=== PATIENT | male | born 1990 | race Hispanic/Latino ===

== ENCOUNTER 2017-12-08 20:48 | Emergency (ER) | payer OTHER ==
--- NOTE | 2017-12-08 21:27 | EDPHYS ---
Physician Documentation [facility] Name: Rickey Ingram Age: 26 yrs Sex: Male : 1990 Arrival Date: 12/08/2017 Time: 20:52 Bed 12 Private MD: Rajesh Lee HPI: 12/08 21:37 This 26 yrs old Male presents to ER via Ambulatory with complaints of Rash. kb 21:37 The patient's rash thought to be caused by an unknown cause. The rash is located on the kb body diffusely. The rash can be described as erythematous. Onset: The symptoms/episode began/occurred 2 week(s) ago. Associated signs and symptoms: Pertinent positives: itching, Pertinent negatives: burning sensation, difficulty breathing, fever, nausea, Pain swelling of lips, swelling of throat, swelling of tongue, vomiting, wheezing. Severity of symptoms: At their worst the symptoms were moderate in the emergency department the symptoms are unchanged. Treatment given at home: Benadryl. The patient has not experienced similar symptoms in the past. The patient has not recently seen a physician. Pt states he has had a rash that started on feet and hands, then spread to entire body. C/o intense itching. No one else has symptoms at home.. Historical: - Allergies: 21:05 No Known Allergies; aj - Home Meds: 21:05 None [Active]; aj - PMHx: 21:05 CVA; aj - PSHx: 21:05 Testicular Torsion; Knee surgery; aj - Immunization history:: Adult Immunizations up to date. - Social history:: Smoking status: Patient uses tobacco products, smokes one-half pack cigarettes per day. - Ebola Screening: : Patient negative for fever greater than or equal to 101.5 degrees Fahrenheit, and additional compatible Ebola Virus Disease symptoms Patient denies exposure to infectious person Patient denies travel to an Ebola-affected area in the 21 days before illness onset No symptoms or risks identified at this time. ROS: 21:37 Constitutional: Negative for fever, chills, and weight loss, ENT: Negative for injury, kb pain, and discharge, Neck: Negative for injury, pain, and swelling, Cardiovascular: Negative for chest pain, palpitations, and edema, Respiratory: Negative for shortness of breath, cough, wheezing, and pleuritic chest pain, Abdomen/GI: Negative for abdominal pain, nausea, vomiting, diarrhea, and constipation, Back: Negative for injury and pain, MS/Extremity: Negative for injury and deformity, Neuro: Negative for headache, weakness, numbness, tingling, and seizure. 21:37 Skin: Positive for rash, diffusely. Exam: 21:37 Constitutional: This is a well developed, well nourished patient who is awake, alert, kb and in no acute distress. Head/Face: Normocephalic, atraumatic. ENT: Nares patent. No nasal discharge, no septal abnormalities noted. Tympanic membranes are normal and external auditory canals are clear. Oropharynx with no redness, swelling, or masses, exudates, or evidence of obstruction, uvula midline. Mucous membranes moist. Neck: Trachea midline, no thyromegaly or masses palpated, and no cervical lymphadenopathy. Supple, full range of motion without nuchal rigidity, or vertebral point tenderness. No Meningismus. Chest/axilla: Normal chest wall appearance and motion. Nontender with no deformity. No lesions are appreciated. Cardiovascular: Regular rate and rhythm with a normal S1 and S2. No gallops, murmurs, or rubs. Normal PMI, no JVD. No pulse deficits. Respiratory: Lungs have equal breath sounds bilaterally, clear to auscultation and percussion. No rales, rhonchi or wheezes noted. No increased work of breathing, no retractions or nasal flaring. Abdomen/GI: Soft, non-tender, with normal bowel sounds. No distension or tympany. No guarding or rebound. No evidence of tenderness throughout. MS/ Extremity: Pulses equal, no cyanosis. Neurovascular intact. Full, normal range of motion. Neuro: Awake and alert, GCS 15, oriented to person, place, time, and situation. Cranial nerves II-XII grossly intact. Motor strength 5/5 in all extremities. Sensory grossly intact. Cerebellar exam normal. Normal gait. 21:40 Skin: redness noted between fingers, pt scratching all over . kb Vital Signs: 21:05 BP 134 / 88; Pulse 67; Resp 19; Temp 98.1; Pulse Ox 96% on R/A; Weight 117.03 kg; aj Height 5 ft. 7 in. (170.18 cm); 21:05 Body Mass Index 40.41 (117.03 kg, 170.18 cm) heather MDM: 21:16 Patient medically screened. kb 21:37 Data reviewed: vital signs, nurses notes. Data interpreted: Pulse oximetry: on room air kb is 96 %. Interpretation: normal. Counseling: I had a detailed discussion with the patient and/or guardian regarding: the historical points, exam findings, and any diagnostic results supporting the discharge/admit diagnosis, the need for outpatient follow up, a family practitioner, to return to the emergency department if symptoms worsen or persist or if there are any questions or concerns that arise at home. Administered Medications: No medications were administered Disposition: 12/09 06:52 Co-signature as Attending Physician, Rajesh Perry MD I agree with the assessment and [facility] plan of care. Disposition: 12/08/17 21:26 Discharged to Home. Impression: Scabies. - Condition is Stable. - Discharge Instructions: Scabies, Adult. - Prescriptions for Elimite 5 % Topical Cream - apply 1 application by TOPICAL route one time Wash after 12 hours.; 60 gram. - Medication Reconciliation Form, Thank You Letter, Antibiotic Education, Prescription Opioid Use form. - Follow up: Emergency Department; When: As needed; Reason: Worsening of condition. Follow up: Private Physician; When: 2 - 3 days; Reason: Recheck today's complaints, Continuance of care, Re-evaluation by your physician. Signatures: Nayeli López, CAREY-James PATINO-Danielle Telles RN RN aj Anderson, Corey, MD MD [facility] Corrections: (The following items were deleted from the chart) 12/08 21:32 21:26 12/08/2017 21:26 Discharged to Home. Impression: Scabies. Condition is Stable. aj Forms are Medication Reconciliation Form, Thank You Letter, Antibiotic Education, Prescription Opioid Use. Follow up: Emergency Department; When: As needed; Reason: Worsening of condition. Follow up: Private Physician; When: 2 - 3 days; Reason: Recheck today's complaints, Continuance of care, Re-evaluation by your physician. kb 21:41 21:37 Constitutional: This is a well developed, well nourished patient who is awake, kb alert, and in no acute distress. Head/Face: Normocephalic, atraumatic. ENT: Nares patent. No nasal discharge, no septal abnormalities noted. Tympanic membranes are normal and external auditory canals are clear. Oropharynx with no redness, swelling, or masses, exudates, or evidence of obstruction, uvula midline. Mucous membranes moist. Neck: Trachea midline, no thyromegaly or masses palpated, and no cervical lymphadenopathy. Supple, full range of motion without nuchal rigidity, or vertebral point tenderness. No Meningismus. Chest/axilla: Normal chest wall appearance and motion. Nontender with no deformity. No lesions are appreciated. Cardiovascular: Regular rate and rhythm with a normal S1 and S2. No gallops, murmurs, or rubs. Normal PMI, no JVD. No pulse deficits. Respiratory: Lungs have equal breath sounds bilaterally, clear to auscultation and percussion. No rales, rhonchi or wheezes noted. No increased work of breathing, no retractions or nasal flaring. Abdomen/GI: Soft, non-tender, with normal bowel sounds. No distension or tympany. No guarding or rebound. No evidence of tenderness throughout. Skin: Warm, dry with normal turgor. Normal color with no rashes, no lesions, and no evidence of cellulitis. MS/ Extremity: Pulses equal, no cyanosis. Neurovascular intact. Full, normal range of motion. Neuro: Awake and alert, GCS 15, oriented to person, place, time, and situation. Cranial nerves II-XII grossly intact. Motor strength 5/5 in all extremities. Sensory grossly intact. Cerebellar exam normal. Normal gait. kb
--- NOTE | 2017-12-08 21:27 | ER ---
Nurse's Notes [facility] Name: Rickey Ingram Age: 26 yrs Sex: Male : 1990 Arrival Date: 12/08/2017 Time: 20:52 Bed 12 Private MD: Diagnosis: Scabies Presentation: 12/08 21:03 Presenting complaint: Patient states: Reports itchy rash to bilateral hands that is aj worse at night for 2 weeks. Rash has spread to groin and feet. Transition of care: patient was not received from another setting of care. Onset of symptoms was November 25, 2017. Risk Assessment: Do you want to hurt yourself or someone else? Patient reports no desire to harm self or others. Initial Sepsis Screen: Does the patient meet any 2 criteria? No. Patient's initial sepsis screen is negative. Does the patient have a suspected source of infection? No. Patient's initial sepsis screen is negative. Care prior to arrival: None. 21:03 Method Of Arrival: Ambulatory aj 21:03 Acuity: MARY 5 aj Triage Assessment: 21:05 General: Appears in no apparent distress. comfortable, Behavior is calm, cooperative, aj appropriate for age. Pain: Denies pain. Neuro: Level of Consciousness is awake, alert, obeys commands, Oriented to person, place, time, situation, Appropriate for age. Respiratory: Airway is patent Respiratory effort is even, unlabored, Respiratory pattern is regular, symmetrical. Derm: Skin is intact, is healthy with good turgor, Skin is pink, warm \T\ dry. normal, Rash noted that is itchy, on pelvis, right hand, left hand, right foot and left foot. Historical: - Allergies: 21:05 No Known Allergies; aj - Home Meds: 21:05 None [Active]; aj - PMHx: 21:05 CVA; aj - PSHx: 21:05 Testicular Torsion; Knee surgery; aj - Immunization history:: Adult Immunizations up to date. - Social history:: Smoking status: Patient uses tobacco products, smokes one-half pack cigarettes per day. - Ebola Screening: : Patient negative for fever greater than or equal to 101.5 degrees Fahrenheit, and additional compatible Ebola Virus Disease symptoms Patient denies exposure to infectious person Patient denies travel to an Ebola-affected area in the 21 days before illness onset No symptoms or risks identified at this time. Screenin:17 Abuse screen: Denies threats or abuse. Nutritional screening: No deficits noted. bb Tuberculosis screening: No symptoms or risk factors identified. Fall Risk None identified. Assessment: :17 Reassessment: No changes from previously documented assessment. see triage assessment. bb Vital Signs: 21:05 BP 134 / 88; Pulse 67; Resp 19; Temp 98.1; Pulse Ox 96% on R/A; Weight 117.03 kg; aj Height 5 ft. 7 in. (170.18 cm); 21:05 Body Mass Index 40.41 (117.03 kg, 170.18 cm) aj ED Course: 20:52 Patient arrived in ED. al2 21: Triage completed. aj 21:05 Arm band placed on left wrist. Patient placed in an exam room. aj 21:16 Nayeli López FNP-C is [facility]. kb 21:16 Rajesh Perry MD is Attending Physician. kb 21:17 Patient has correct armband on for positive identification. Call light in reach. bb 21:32 Danielle Bautista, RN is Primary Nurse. aj 21:32 No provider procedures requiring assistance completed. Patient did not have IV access aj during this emergency room visit. Administered Medications: No medications were administered Outcome: :26 Discharge ordered by MD. kb 21:32 Discharged to home ambulatory. aj 21:32 Condition: good 21:32 Discharge instructions given to patient, Instructed on discharge instructions, follow up and referral plans. medication usage, Demonstrated understanding of instructions, follow-up care, medications, Prescriptions given X 1. 21:32 Patient left the ED. aj Signatures: Nayeli López FNP-C FNP-Danielle Telles, RN RN Kayleen Lagos RN RN Nneka Berg al2
== END 2017-12-08 21:32 | disposition home or self-care (01) ==
LOC: ER 20:48
DX: B86 Scabies (principal); F17.210 Nicotine dependence, cigarettes, uncomplicated; Z86.73 Personal history of transient ischemic attack (TIA), and cerebral infarction without residual deficits
CPT/HCPCS: 99282

== ENCOUNTER 2018-08-17 19:07 | Emergency (ER) | payer OTHER ==
--- NOTE | 2018-08-17 20:26 | RAD REPORT ---
EXAM DESCRIPTION: RAD - C Spine Ap/Lat - 08/17/2018 8:16 pm CLINICAL HISTORY: Neck pain FINDINGS: The alignment of the cervical spine is satisfactory. No fracture or dislocation is seen. Mild spondylosis involves mid and distal cervical spine
--- NOTE | 2018-08-17 20:28 | RAD REPORT ---
EXAM DESCRIPTION: RAD - Lumbar Spine 3 Views - 08/17/2018 8:14 pm CLINICAL HISTORY: Back pain FINDINGS: Six lumbar vertebra The alignment of the lumbar spine is satisfactory. No fracture or dislocation is seen. No significant bone or joint abnormality seen involving the lumbar spine. Mild spondylosis involving the lower thoracic spine
--- NOTE | 2018-08-17 20:34 | ER ---
Nurse's Notes [facility] Name: Rickey Ingram Age: 27 yrs Sex: Male : 1990 Arrival Date: 08/17/2018 Time: 19:09 Bed 10 Private MD: Diagnosis: Low back pain Presentation: 08/17 19:18 Presenting complaint: Left sided low back pain x 3 months. Transition of care: patient hb was not received from another setting of care. Onset of symptoms is unknown. Risk Assessment: Do you want to hurt yourself or someone else? Patient reports no desire to harm self or others. Care prior to arrival: None. 19:18 Method Of Arrival: Ambulatory hb 19:18 Acuity: MARY 4 hb Historical: - Allergies: 19:19 No Known Allergies; hb - PMHx: 19:19 CVA; hb - PSHx: 19:19 Testicular Torsion; Knee surgery; hb - Immunization history:: Adult Immunizations up to date. - Social history:: Smoking status: Patient/guardian denies using tobacco. - Ebola Screening: : No symptoms or risks identified at this time. - Family history:: not pertinent. - Hospitalizations: : No recent hospitalization is reported. Screenin:59 Abuse screen: Denies threats or abuse. Denies injuries from another. Nutritional ed1 screening: No deficits noted. Tuberculosis screening: No symptoms or risk factors identified. Fall Risk None identified. Assessment: 19:59 General: Appears in no apparent distress. Behavior is calm, cooperative. Pain: ed1 Complains of pain in left low back Pain currently is 10 out of 10 on a pain scale. Quality of pain is described as aching, sharp, Pain began years ago. Is continuous. Neuro: Level of Consciousness is awake, alert, obeys commands, Oriented to person, place, time, situation, Gait is steady. Cardiovascular: Denies chest pain, Heart tones S1 S2 present. Respiratory: Airway is patent Respiratory effort is even, unlabored, Respiratory pattern is regular, symmetrical, Breath sounds are clear bilaterally. GI: No signs and/or symptoms were reported involving the gastrointestinal system. : No signs and/or symptoms were reported regarding the genitourinary system. EENT: No signs and/or symptoms were reported regarding the EENT system. Derm: Skin is intact, is healthy with good turgor, Skin is dry, Skin is normal, Skin temperature is warm. Musculoskeletal: Circulation, motion, and sensation intact. Range of motion: intact in all extremities. 20:41 Reassessment: Patient appears in no apparent distress at this time. No changes from ed1 previously documented assessment. Patient and/or family updated on plan of care and expected duration. Pain level reassessed. Patient is alert, oriented x 3, equal unlabored respirations, skin warm/dry/pink. Patient states symptoms have not improved. Vital Signs: 19:18 BP 136 / 90; Pulse 77; Resp 16; Temp 98.5; Pulse Ox 97% on R/A; Pain 10/10; hb 20:41 BP 134 / 79; Pulse 83; Resp 17; Pulse Ox 100% on R/A; Pain 10/10; ed1 ED Course: 19:09 Patient arrived in ED. mr 19:18 Triage completed. hb 19:19 Arm band placed on. hb 19:20 Pete Garzon MD is Attending Physician. rn 19:59 Joan Monaco, VALERIE is Primary Nurse. ed1 19:59 Patient has correct armband on for positive identification. Placed in gown. Bed in low ed1 position. Call light in reach. 20:15 XRAY Lumbar Spine (3 Views) In Process Unspecified. EDMS 20:15 XRAY C Spine Ap/lat In Process Unspecified. EDMS 20:41 No provider procedures requiring assistance completed. Patient did not have IV access ed1 during this emergency room visit. Administered Medications: No medications were administered Outcome: 20:33 Discharge ordered by . rn 20:41 Discharged to home ambulatory. ed1 20:41 Condition: good 20:41 Discharge instructions given to patient, Instructed on discharge instructions, follow up and referral plans. medication usage, Demonstrated understanding of instructions, follow-up care, medications, Prescriptions given X 3. 20:42 Patient left the ED. ed1 Signatures: Dispatcher [employer] EDNE RileyRuth Pete Garzon MD MD rn Riggs, Erika, RN RN ed1 Nicolette Borrero RN RN
--- NOTE | 2018-08-17 20:34 | EDPHYS ---
Physician Documentation [facility] Name: Rickey Ingram Age: 27 yrs Sex: Male : 1990 Arrival Date: 08/17/2018 Time: 19:09 Bed 10 Private MD: ED Physician Pete Garzon HPI: 08/17 19:37 This 27 yrs old Male presents to ER via Ambulatory with complaints of Low Back rn Pain. 19:37 The patient presents with pain that is chronic, with no known mechanism of injury. The rn symptoms are located in the low back, left low back. The pain does not radiate. Onset: The symptoms/episode began/occurred 3 month(s) ago. Modifying factors: The patient symptoms are alleviated by nothing, the patient symptoms are aggravated by any movement, bending, lifting, standing. Associated signs and symptoms: Pertinent negatives: abdominal pain, chest pain, constipation, dysuria, fever, hematuria, incontinence, nausea, numbness, tingling, urinary retention, vomiting, weakness. Severity of symptoms: At their worst the symptoms were moderate, in the emergency department the symptoms have improved. The patient has experienced similar episodes in the past. 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 No bowel/bladder problems. . Historical: - Allergies: 19:19 No Known Allergies; hb - PMHx: 19:19 CVA; hb - PSHx: 19:19 Testicular Torsion; Knee surgery; hb - Immunization history:: Adult Immunizations up to date. - Social history:: Smoking status: Patient/guardian denies using tobacco. - Ebola Screening: : No symptoms or risks identified at this time. - Family history:: not pertinent. - Hospitalizations: : No recent hospitalization is reported. ROS: 19:37 Constitutional: Negative for fever, chills, and weight loss, Eyes: Negative for injury, rn pain, redness, and discharge, Cardiovascular: Negative for chest pain, palpitations, and edema, Respiratory: Negative for shortness of breath, cough, wheezing, and pleuritic chest pain, Abdomen/GI: Negative for abdominal pain, nausea, vomiting, diarrhea, and constipation, Back: Negative for injury MS/Extremity: Negative for injury and deformity, Skin: Negative for injury, rash, and discoloration, Neuro: Negative for headache, weakness, numbness, tingling, and seizure. Exam: 19:37 Constitutional: This is a well developed, well nourished patient who is awake, alert, rn and in no acute distress. Head/Face: Normocephalic, atraumatic. Eyes: Pupils equal round and reactive to light, extra-ocular motions intact. Lids and lashes normal. Conjunctiva and sclera are non-icteric and not injected. Cornea within normal limits. Periorbital areas with no swelling, redness, or edema. Neck: Trachea midline, no thyromegaly or masses palpated, and no cervical lymphadenopathy. Supple, full range of motion without nuchal rigidity, or vertebral point tenderness. No Meningismus. Back: No spinal tenderness. No costovertebral tenderness. Full range of motion. Skin: Warm, dry MS/ Extremity: Pulses equal, no cyanosis. Neurovascular intact. Full, normal range of motion. Equal circumference. Neuro: Awake and alert, GCS 15, oriented to person, place, time, and situation. Cranial nerves II-XII grossly intact. Motor strength 5/5 in all extremities. Sensory grossly intact. Vital Signs: 19:18 BP 136 / 90; Pulse 77; Resp 16; Temp 98.5; Pulse Ox 97% on R/A; Pain 10/10; hb 20:41 BP 134 / 79; Pulse 83; Resp 17; Pulse Ox 100% on R/A; Pain 10/10; ed1 MDM: 19:20 Patient medically screened. rn 20:30 Differential diagnosis: arthritis, strain, sciatica, Herniated disc. Data reviewed: rn vital signs, nurses notes, radiologic studies, plain films, and as a result, I will discharge patient. Counseling: I had a detailed discussion with the patient and/or guardian regarding: the historical points, exam findings, and any diagnostic results supporting the discharge/admit diagnosis, radiology results, the need for outpatient follow up, to return to the emergency department if symptoms worsen or persist or if there are any questions or concerns that arise at home. Special discussion: I discussed with the patient/guardian in detail that at this point there is no indication for admission to the hospital. It is understood, however, that if the symptoms persist or worsen the patient needs to return immediately for re-evaluation. Based on the history and exam findings, there is no indication for further emergent testing or inpatient evaluation. I discussed with the patient/guardian the need to see the back specialist for further evaluation of the symptoms. I discussed with the patient/guardian the need to see the primary care provider for further evaluation of the symptoms. 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 08/17 19:32 Order name: XRAY Lumbar Spine (3 Views); Complete Time: 20:29 rn 08/17 19:32 Order name: XRAY C Spine Ap/lat; Complete Time: 20:29 rn Administered Medications: No medications were administered Disposition: 08/17/18 20:33 Discharged to Home. Impression: Low back pain. - Condition is Stable. - Discharge Instructions: Back Pain, Adult, Chronic Back Pain, Back Pain, Pediatric, Musculoskeletal Pain, Heat Therapy. - Prescriptions for Ultram 50 mg Oral Tablet - take 1 tablet by ORAL route every 6 hours As needed; 20 tablet. Cyclobenzaprine 10 mg Oral Tablet - take 1 tablet by ORAL route every 8 hours As needed; 20 tablet. Medrol (Ricardo) 4 mg Oral Tablets, Dose Pack - take 1 tablet by ORAL route as directed - follow package instructions; 1 packet. - Medication Reconciliation Form, Thank You Letter, Antibiotic Education, Prescription Opioid Use form. - Follow up: Private Physician; When: As needed; Reason: Recheck today's complaints, Re-evaluation by your physician. - Problem is chronic. - Symptoms are unchanged. Signatures: Dispatcher [employer] EDMS Pete Garzon MD MD rn Riggs, Erika, RN RN ed1 Nicolette Borrero RN RN Corrections: (The following items were deleted from the chart) 20:42 20:33 08/17/2018 20:33 Discharged to Home. Impression: Low back pain. Condition is ed1 Stable. Forms are Medication Reconciliation Form, Thank You Letter, Antibiotic Education, Prescription Opioid Use. Follow up: Private Physician; When: As needed; Reason: Recheck today's complaints, Re-evaluation by your physician. Problem is chronic. Symptoms are unchanged. rn
== END 2018-08-17 20:42 | disposition home or self-care (01) ==
LOC: ER 19:07
DX: M54.5 Low back pain (principal)
CPT/HCPCS: 72040; 72100; 99283

== ENCOUNTER 2018-10-08 09:42 | Emergency (ER) | payer OTHER ==
--- NOTE | 2018-10-08 10:36 | EDPHYS ---
Physician Documentation [facility] Name: Rickey Ingram Age: 27 yrs Sex: Male : 1990 Arrival Date: 10/08/2018 Time: 09:45 Bed 18 Private MD: None, None ED Physician Pernell Marks HPI: 10/08 10:23 This 27 yrs old Male presents to ER via Ambulatory with complaints of Ear gs Pain, TONSILS. 10:23 The patient presents with pain, that is acute. The complaints affect the right ear. gs Onset: The symptoms/episode began/occurred 3 day(s) ago, and became worse and became persistent. Modifying factors: the symptoms are aggravated by loud noise. Associated signs and symptoms: Pertinent positives: sore throat. Severity of symptoms: At their worst the symptoms were severe in the emergency department the symptoms are unchanged. The patient has experienced similar episodes in the past, a few times. Historical: - Allergies: 10:05 No Known Allergies; em - Home Meds: 10:05 None [Active]; em - PMHx: 10:05 CVA; em - PSHx: 10:05 testicular torsion; left ACL repair; right meniscus repair; em - Immunization history:: Adult Immunizations up to date. - Social history:: Smoking status: Patient uses tobacco products, vapes. - Ebola Screening: : Patient negative for fever greater than or equal to 101.5 degrees Fahrenheit, and additional compatible Ebola Virus Disease symptoms Patient denies exposure to infectious person Patient denies travel to an Ebola-affected area in the 21 days before illness onset No symptoms or risks identified at this time. ROS: 10:23 All other systems are negative. gs Exam: 10:23 Head/Face: Normocephalic, atraumatic. Eyes: Pupils equal round and reactive to light, gs extra-ocular motions intact. Lids and lashes normal. Conjunctiva and sclera are non-icteric and not injected. Cornea within normal limits. Periorbital areas with no swelling, redness, or edema. Neck: Trachea midline, no thyromegaly or masses palpated, and no cervical lymphadenopathy. Supple, full range of motion without nuchal rigidity, or vertebral point tenderness. No Meningismus. Chest/axilla: Normal chest wall appearance and motion. Nontender with no deformity. No lesions are appreciated. Cardiovascular: Regular rate and rhythm with a normal S1 and S2. No gallops, murmurs, or rubs. Normal PMI, no JVD. No pulse deficits. Respiratory: Lungs have equal breath sounds bilaterally, clear to auscultation and percussion. No rales, rhonchi or wheezes noted. No increased work of breathing, no retractions or nasal flaring. Abdomen/GI: Soft, non-tender, with normal bowel sounds. No distension or tympany. No guarding or rebound. No evidence of tenderness throughout. Back: No spinal tenderness. No costovertebral tenderness. Full range of motion. Skin: Warm, dry with normal turgor. Normal color with no rashes, no lesions, and no evidence of cellulitis. MS/ Extremity: Pulses equal, no cyanosis. Neurovascular intact. Full, normal range of motion. Neuro: Awake and alert, GCS 15, oriented to person, place, time, and situation. Cranial nerves II-XII grossly intact. Motor strength 5/5 in all extremities. Sensory grossly intact. Cerebellar exam normal. Normal gait. 10:23 Constitutional: The patient appears alert, awake. 10:23 ENT: Ear canal(s): are normal, TM's: decreased mobility, on the right, fluid levels, on the right, loss of bony landmarks, that is pronounced, on the right. 10:23 ENT: Posterior pharynx: erythema, that is mild. 10:23 Neck: Lymph nodes: no appreciated lymphadenopathy. Vital Signs: 10:05 BP 140 / 87; Pulse 71; Resp 18; Temp 98.5(O); Pulse Ox 100% on R/A; Weight 117.93 kg; em Height 5 ft. 8 in. (172.72 cm); Pain 9/10; 10:05 Body Mass Index 39.53 (117.93 kg, 172.72 cm) em MDM: 10:22 Patient medically screened. gs 10:23 Differential diagnosis: otitis media, acute otalgia. Data reviewed: vital signs, nurses gs notes. Counseling: I had a detailed discussion with the patient and/or guardian regarding: the presence of at least one elevated blood pressure reading (>120/80) during this emergency department visit. Counseling: I had a detailed discussion with the patient and/or guardian regarding: the historical points, exam findings, and any diagnostic results supporting the discharge/admit diagnosis. Response to treatment: the patient's symptoms have mildly improved after treatment. Special discussion: I have referred the patient to see his PCP for further evaluation of high blood pressure. 10/08 10:02 Order name: Strep 10/08 10:02 Order name: Influenza Screen (a \T\ B) 10/08 10:36 Order name: Throat Culture EDTN Administered Medications: 10:48 Drug: Ibuprofen 600 mg Route: PO; em 10:48 Follow up: Response: Medication administered at discharge. em Disposition: 10/08/18 10:36 Discharged to Home. Impression: Otalgia, right ear, Suppurative otitis media, unspecified, right ear. - Condition is Stable. - Discharge Instructions: Otitis Media, Adult, Earache, Adult, Managing Your Hypertension. - Prescriptions for Ceftin 500 mg Oral Tablet - take 1 tablet by ORAL route every 12 hours for 10 days; 20 tablet. Tylenol- Codeine #4 300-60 mg Oral Tablet - take 1 tablet by ORAL route every 6 hours As needed; 6 tablet. - Medication Reconciliation Form, Thank You Letter, Antibiotic Education, Prescription Opioid Use form. - Follow up: Private Physician; When: 2 - 3 days; Reason: Re-evaluation by your physician. Follow up: Suze Ferguson DO; When: 2 - 3 days; Reason: Re-evaluation by your physician. Signatures: Dispatcher [employer] EDTN Iggy Chase, PHYSICIAN'S AIDE PHYSICIAN'S AIDE Pernell Marks MD MD gs Corrections: (The following items were deleted from the chart) 10:50 10:36 10/08/2018 10:36 Discharged to Home. Impression: Otalgia, right ear; Suppurative em otitis media, unspecified, right ear. Condition is Stable. Forms are Medication Reconciliation Form, Thank You Letter, Antibiotic Education, Prescription Opioid Use. Follow up: Private Physician; When: 2 - 3 days; Reason: Re-evaluation by your physician. Follow up: Suze Ferguson; When: 2 - 3 days; Reason: Re-evaluation by your physician. manuel
--- NOTE | 2018-10-08 10:36 | ER ---
Nurse's Notes [facility] Name: Rickey Ingram Age: 27 yrs Sex: Male : 1990 Arrival Date: 10/08/2018 Time: 09:45 Bed 18 Private MD: None, None Diagnosis: Otalgia, right ear;Suppurative otitis media, unspecified, right ear Presentation: 10/08 10:01 Presenting complaint: Patient states: sore throat, right ear and right tonsil swelling em for 3 days, reports fever of 100.4. Transition of care: patient was not received from another setting of care. Onset of symptoms was October 05, 2018. Risk Assessment: Do you want to hurt yourself or someone else? Patient reports no desire to harm self or others. Initial Sepsis Screen: Does the patient meet any 2 criteria? No. Patient's initial sepsis screen is negative. Does the patient have a suspected source of infection? No. Patient's initial sepsis screen is negative. Care prior to arrival: None. 10:01 Method Of Arrival: Ambulatory em 10:11 Acuity: MARY 4 iw Historical: - Allergies: 10:05 No Known Allergies; em - Home Meds: 10:05 None [Active]; em - PMHx: 10:05 CVA; em - PSHx: 10:05 testicular torsion; left ACL repair; right meniscus repair; em - Immunization history:: Adult Immunizations up to date. - Social history:: Smoking status: Patient uses tobacco products, vapes. - Ebola Screening: : Patient negative for fever greater than or equal to 101.5 degrees Fahrenheit, and additional compatible Ebola Virus Disease symptoms Patient denies exposure to infectious person Patient denies travel to an Ebola-affected area in the 21 days before illness onset No symptoms or risks identified at this time. Screenin:02 Abuse screen: Denies threats or abuse. Nutritional screening: No deficits noted. em Tuberculosis screening: No symptoms or risk factors identified. Fall Risk None identified. Assessment: 10:05 General: Appears in no apparent distress. comfortable, Behavior is calm, cooperative, em Reports fever for 1-2 days. Pain: Complains of pain in right ear, right tonsil, and throat Pain currently is 9 out of 10 on a pain scale. Neuro: Level of Consciousness is awake, alert, obeys commands, Oriented to person, place, time, situation. Cardiovascular: Capillary refill < 3 seconds Patient's skin is warm and dry. Respiratory: Airway is patent Respiratory effort is even, unlabored, Respiratory pattern is regular, symmetrical. GI: Reports nausea, Patient currently denies vomiting. EENT: Nares are clear Oral mucosa is moist. Throat is clear is pink Reports pain in right ear when swallowing. Derm: Skin is intact, is healthy with good turgor, Skin is pink, warm \T\ dry. Musculoskeletal: Capillary refill < 3 seconds, Range of motion: intact in all extremities. 10:15 Reassessment: Patient appears in no apparent distress at this time. I agree with above iw assessment by Iggy Chase LVN. Vital Signs: 10:05 BP 140 / 87; Pulse 71; Resp 18; Temp 98.5(O); Pulse Ox 100% on R/A; Weight 117.93 kg; em Height 5 ft. 8 in. (172.72 cm); Pain 9/10; 10:05 Body Mass Index 39.53 (117.93 kg, 172.72 cm) em ED Course: 09:45 Patient arrived in ED. ag5 09:46 None, None is Private Physician. ag5 09:53 Pernell Marks MD is Attending Physician. gs 09:55 Iggy Chase LVN is Primary Nurse. em 10:02 Patient has correct armband on for positive identification. Bed in low position. Call em light in reach. 10:05 Arm band placed on. em 10:11 Triage completed. iw 10:13 Flu and/or RSV swab sent to lab. Strep swab sent to lab. mh5 10:14 Pulse ox on. NIBP on. mh5 10:14 Influenza Screen (a \T\ B) Sent. mh5 10:14 Strep Sent. mh5 10:35 Suze Ferguson DO is Referral Physician. gs 10:49 No provider procedures requiring assistance completed. Patient did not have IV access em during this emergency room visit. Administered Medications: 10:48 Drug: Ibuprofen 600 mg Route: PO; em 10:48 Follow up: Response: Medication administered at discharge. em Outcome: 10:36 Discharge ordered by MD. gs 10:49 Discharged to home ambulatory. em 10:49 Condition: good 10:49 Discharge instructions given to patient, Instructed on discharge instructions, follow up and referral plans. medication usage, Demonstrated understanding of instructions, follow-up care, medications, Prescriptions given X 2. 10:50 Patient left the ED. em Signatures: Iggy Chase, PAOLO SANN Tami Smith, Ashley Flor RN [facility] Pernell Marks MD MD gs Gaskin, Ajare 5
[2018-10-08] MEDS ORDERED: predniSONE 20 MG TAB ONE (10:58)
[2018-10-08] MEDS ORDERED: DIPHENHYDRAMINE 25 MG TAB/CAP ONE (10:58)
[2018-10-08] MEDS ORDERED: FAMOTIDINE 20 MG TAB ONE (10:58)
[2018-10-08] MEDS ORDERED: IBUPROFEN 200 MG TAB PO ONE (11:01)
[2018-10-08] MEDS ORDERED: IBUPROFEN 400 MG TAB ONE (11:01)
== END 2018-10-08 10:50 | disposition home or self-care (01) ==
LOC: ER 09:42
DX: H66.41 Suppurative otitis media, unspecified, right ear (principal); Z72.0 Tobacco use
CPT/HCPCS: 87070; 87081; 87804; 99284; J7512

== ENCOUNTER 2022-02-05 18:31 | Emergency (ER) | payer SELFPAY ==
[2022-02-05 19:38] LABS: Urine Blood Trace-intact (Negative); Urine Glucose Trace (Negative); Urine Protein Negative (Negative)
[2022-02-05] MEDS ORDERED: IBUPROFEN 400 MG TAB ONE (19:53)
[2022-02-05 20:12] LABS: Urine Bacteria <20 /HPF (<20); Urine Mucus Slight /HPF (None Seen); Urine RBC <5 /HPF (None Seen)
--- NOTE | 2022-02-05 21:07 | ER ---
Nurse's Notes [facility] Name: Rickey Ingram Age: 31 yrs Sex: Male : 1990 Arrival Date: 02/05/2022 Time: 18:33 Bed 23 Private MD: Diagnosis: Acute pharyngitis, unspecified Presentation: 02/05 19:04 Chief complaint: Patient states: woke up at 3am to urinate and had a really bad jh5 burning, my tonsils are been swelling, and when I cough my back hurts; all of this started last night. Coronavirus screen: Vaccine status: Patient reports receiving the 2nd dose of the covid vaccine. Client denies travel out of the [place] in the last 14 days. Ebola Screen: Patient negative for fever greater than or equal to 101.5 degrees Fahrenheit, and additional compatible Ebola Virus Disease symptoms Patient denies exposure to infectious person. Patient denies travel to an Ebola-affected area in the 21 days before illness onset. Initial Sepsis Screen: Does the patient meet any 2 criteria? HR > 90 bpm. Does the patient have a suspected source of infection? Yes:. Risk Assessment: Do you want to hurt yourself or someone else? Patient reports no desire to harm self or others. Onset of symptoms was February 04, 2022. 19:04 Method Of Arrival: Ambulatory [facility] 19:04 Acuity: MARY 3 jh5 Triage Assessment: 19:08 General: Appears uncomfortable, obese, well groomed, Behavior is calm, cooperative, jh5 appropriate for age. Pain: Complains of pain in back. Historical: - Allergies: 19:08 No Known Allergies; jh5 - PMHx: 19:08 CVA; jh5 - PSHx: 19:08 left ACL; testicular torsion; right knee; jh5 - Immunization history:: Adult Immunizations up to date. - Social history:: Smoking status: Reported history of juuling and/or vaping. Screenin:30 Abuse screen: Denies threats or abuse. Nutritional screening: No deficits noted. jj7 Tuberculosis screening: No symptoms or risk factors identified. Fall Risk None identified. Assessment: 19:30 Pain: Complains of pain in left aspect of posterior pharynx and right aspect of jj7 posterior pharynx Pain level that patient reports is acceptable is 8 out of 10 on a pain scale. : Reports burning with urination, urgency. Musculoskeletal: Reports pain in back. Vital Signs: 19:04 BP 156 / 96; Pulse 111; Resp 18; Temp 99.5(O); Pulse Ox 100% ; Weight 131.54 kg; Height [facility] 5 ft. 7 in. (170.18 cm); 20:07 BP 146 / 86; Pulse 76; Resp 16; Pulse Ox 98% ; jj7 21:09 BP 140 / 87; Pulse 100; Resp 19; Temp 98.9; Pulse Ox 100% ; jj7 19:04 Body Mass Index 45.42 (131.54 kg, 170.18 cm) [facility] ED Course: 18:33 Patient arrived in ED. [facility] 18:45 Hugh Rhodes PA is PHCP. bonny 18:45 Rajesh Perry MD is Attending Physician. [facility] 19:07 Triage completed. [facility] 19:08 Arm band placed on right wrist. [facility] 19:27 Antonia Padilla, VALERIE is Primary Nurse. j7 19:30 Patient has correct armband on for positive identification. Bed in low position. Call j light in reach. 19:48 SARS-COV-2 RT PCR (Document "Date of Onset" if Symptomatic) Sent. jj7 19:48 Strep Sent. jj7 19:48 Flu Sent. jj7 19:48 Urine Microscopic Only Sent. jj7 21:07 No provider procedures requiring assistance completed. Patient did not have IV access j7 during this emergency room visit. Administered Medications: 19:56 Drug: Ibuprofen 800 mg Route: PO; jj7 Medication: 19:30 VIS not applicable for this client. jj7 Outcome: 21:06 Discharge ordered by . bonny 21:07 Discharged to home ambulatory. jj7 21:07 Condition: good 21:07 Discharge instructions given to patient, Instructed on discharge instructions, Demonstrated understanding of instructions, Prescriptions given X 1. 21:12 Patient left the ED. j7 Signatures: Hugh Rhodes PA PA jmm Garcia, Rubi 4 Loree Cunha RN RN [facility] Antonia Padilla, VALERIE RN jj7
--- NOTE | 2022-02-05 21:07 | EDPHYS ---
Physician Documentation [facility] Name: Rickey Ingram Age: 31 yrs Sex: Male : 1990 Arrival Date: 02/05/2022 Time: 18:33 Bed 23 Private MD: ED Physician Rajesh Perry HPI: 02/05 19:28 This 31 yrs old Male presents to ER via Ambulatory with complaints of Low Back jmm Pain, Burning With Urination. 19:28 The patient presents with pain that is acute. Is a 31-year-old male with history of CVA jmm the presents emerged department with complaints of sore throat, congestion, fever and back pain beginning approximately 1 day ago.. Historical: - Allergies: 19:08 No Known Allergies; jh5 - PMHx: 19:08 CVA; jh5 - PSHx: 19:08 left ACL; testicular torsion; right knee; jh5 - Immunization history:: Adult Immunizations up to date. - Social history:: Smoking status: Reported history of juuling and/or vaping. ROS: 21:04 Constitutional: Positive for fever. jmm 21:04 ENT: Positive for sore throat. 21:04 : Positive for urinary symptoms. 21:04 All other systems are negative. Exam: 21:04 Constitutional: This is a well developed, well nourished patient who is awake, alert, jmm and in no acute distress. Head/Face: atraumatic. 21:04 Neck: Trachea midline, Supple Chest/axilla: Normal chest wall appearance and motion. Cardiovascular: Regular rate and rhythm. No edema appreciated Respiratory: Normal respirations, no respiratory distress appreciated Abdomen/GI: Non distended Back: Normal ROM Skin: General appearance color normal MS/ Extremity: Moves all extremities, no obvious deformities appreciated, no edema noted to the lower extremities Neuro: Awake and alert Psych: Behavior is normal, Mood is normal, Patient is cooperative and pleasant 21:04 Eyes: Conjunctiva: injected, bilaterally. 21:04 ENT: Posterior pharynx: erythema, that is mild. Vital Signs: 19:04 BP 156 / 96; Pulse 111; Resp 18; Temp 99.5(O); Pulse Ox 100% ; Weight 131.54 kg; Height jh5 5 ft. 7 in. (170.18 cm); 20:07 BP 146 / 86; Pulse 76; Resp 16; Pulse Ox 98% ; j7 21:09 BP 140 / 87; Pulse 100; Resp 19; Temp 98.9; Pulse Ox 100% ; j7 19:04 Body Mass Index 45.42 (131.54 kg, 170.18 cm) [facility] MDM: 19:28 Patient medically screened. [facility] 21:05 Data reviewed: vital signs, nurses notes. Counseling: I had a detailed discussion with bonny the patient and/or guardian regarding: the historical points, exam findings, and any diagnostic results supporting the discharge/admit diagnosis, lab results, radiology results, the need for outpatient follow up, to return to the emergency department if symptoms worsen or persist or if there are any questions or concerns that arise at home. 02/05 19:36 Order name: Urine Microscopic Only; Complete Time: 20:17 [facility] 02/05 19:38 Order name: Flu; Complete Time: 20:38 [facility] 02/05 19:38 Order name: Strep; Complete Time: 20:17 [facility] 02/05 19:38 Order name: SARS-COV-2 RT PCR (Document "Date of Onset" if Symptomatic); Complete Time: [facility] 20:38 02/05 19:38 Order name: Urine Dipstick-Ancillary; Complete Time: 19:38 [facility] 02/05 20:12 Order name: Throat Culture [facility] 02/05 19:36 Order name: Urine Dipstick-Ancillary (obtain specimen); Complete Time: 19:48 [facility] 02/05 20:15 Order name: Urine Culture [facility] Administered Medications: 19:56 Drug: Ibuprofen 800 mg Route: PO; jj7 Disposition Summary: 02/05/22 21:06 Discharge Ordered Location: Home [facility] Condition: Stable [facility] Diagnosis - Acute pharyngitis, unspecified [facility] Followup: [facility] - With: Private Physician - When: 2 - 3 days - Reason: Recheck today's complaints, Continuance of care, Re-evaluation by your physician Discharge Instructions: - Discharge Summary Sheet [facility] - Pharyngitis [facility] Forms: - Medication Reconciliation Form [facility] - Thank You Letter [facility] - Antibiotic Education [facility] - Prescription Opioid Use [facility] Prescriptions: - cefdinir 300 mg Oral capsule - take 1 capsule by ORAL route every 12 hours for 10 days; 20 capsule; Refills: bonny 0, Product Selection Permitted Signatures: Dispatcher [employer] Hugh Powell PA PA jmm Rees, Jessica, RN RN jh5 Antonia Padilla RN RN jj7
[2022-02-05 21:20] VITALS: BP 140/87; TEMP 98.9; O2SAT 100
== END 2022-02-05 21:12 | disposition home or self-care (01) ==
LOC: ER 18:31
DX: J02.9 Acute pharyngitis, unspecified (principal); Z87.891 Personal history of nicotine dependence; Z86.73 Personal history of transient ischemic attack (TIA), and cerebral infarction without residual deficits; Z20.822 Contact with and (suspected) exposure to COVID-19
CPT/HCPCS: 81003; 81015; 87070; 87081; 87086; 87088; 87804; 99283; U0003

== ENCOUNTER 2022-06-21 19:08 | Emergency (ER) | payer SELFPAY ==
--- NOTE | 2022-06-21 20:03 | ER ---
Nurse's Notes [facility] Name: Rickey Ingram Age: 31 yrs Sex: Male : 1990 Arrival Date: 06/21/2022 Time: 19:13 Bed 10 Private MD: Diagnosis: Sprain of ankle Presentation: 06/21 19:27 Chief complaint: Patient states: I tripped over an extension cord and I twisted the ll3 hell out of my ankle, c/o right ankle pain 12/03 sine 2 PM. Coronavirus screen: Vaccine status: Patient reports receiving the 2nd dose of the covid vaccine. At this time, the client does not indicate any symptoms associated with coronavirus-19. Ebola Screen: No symptoms or risks identified at this time. Initial Sepsis Screen: Does the patient meet any 2 criteria? No. Patient's initial sepsis screen is negative. Does the patient have a suspected source of infection? No. Patient's initial sepsis screen is negative. Risk Assessment: Do you want to hurt yourself or someone else? Patient reports no desire to harm self or others. Onset of symptoms was June 21, 2022 at 14:00. Care prior to arrival: None. 19:27 Method Of Arrival: Ambulatory ll3 19:27 Acuity: MARY 3 ll3 Historical: - Allergies: 19:29 No Known Allergies; ll3 - Home Meds: 19:29 None [Active]; ll3 - PMHx: 19:29 CVA; ll3 - PSHx: 19:29 Left ACL; right knee; Testicular torsion; ll3 - Immunization history:: Client reports receiving the 2nd dose of the Covid vaccine. - Social history:: Smoking status: Reported history of juuling and/or vaping. Assessment: 20:12 General: Appears in no apparent distress. Reports pain in right foot. Pt seen by this bb RN at discharge pt verbalized understanding of and agrees to plan of care discharge instructions given pt right ankle wrapped with jean carlos wrap pt ambulated to exit with slight limp to right leg. Vital Signs: 19:27 BP 148 / 84; Pulse 94; Resp 16; Temp 98.2(TE); Pulse Ox 98% on R/A; Weight 131.54 kg ll3 (R); Height 5 ft. 8 in. (172.72 cm) (R); Pain 8/10; 19:27 Body Mass Index 44.09 (131.54 kg, 172.72 cm) ll3 ED Course: 19:13 Patient arrived in ED. ja2 19:18 Brad Sullivan MD is Attending Physician. sp3 19:29 Triage completed. ll3 19:29 Arm band placed on Patient placed in an exam room, on a stretcher, on pulse oximetry. ll3 19:53 Ankle Right 3 View XRAY In Process Unspecified. EDMS 20:03 Dwayne Robert MD is Referral Physician. sp3 20:14 No provider procedures requiring assistance completed. Patient did not have IV access bb during this emergency room visit. Jean Carlos wrap to right ankle. Administered Medications: No medications were administered Medication: 20:14 VIS not applicable for this client. bb Outcome: 20:03 Discharge ordered by . sp3 20:14 Discharged to home ambulatory. bb 20:14 Condition: stable 20:14 Discharge instructions given to patient, Instructed on discharge instructions, follow up and referral plans. Demonstrated understanding of instructions, follow-up care. 20:15 Patient left the ED. bb Signatures: Dispatcher [employer] EDMS Kayleen Escalona, RN RN bb Brad Sullivan MD MD sp3 Loree Sewell Lynsea RN RN ll3
--- NOTE | 2022-06-21 20:03 | EDPHYS ---
Physician Documentation [facility] Name: Rickey Ingram Age: 31 yrs Sex: Male : 1990 Arrival Date: 06/21/2022 Time: 19:13 Bed 10 Private MD: ED Physician Brad Sullivan HPI: 06/21 20:00 This 31 yrs old Male presents to ER via Ambulatory with complaints of Ankle sp3 Injury. 20:00 31-year-old male with no significant past medical history presents with right ankle sp3 pain secondary to tripping on a extension cord and "twisting it". Patient is able to ambulate but has pain on ambulation. No other injuries reported. ROS negative for proximal injury, head injury, LOC, syncope, or any other symptoms at this time.. Historical: - Allergies: 19:29 No Known Allergies; ll3 - Home Meds: 19:29 None [Active]; ll3 - PMHx: 19:29 CVA; ll3 - PSHx: 19:29 Left ACL; right knee; Testicular torsion; ll3 - Immunization history:: Client reports receiving the 2nd dose of the Covid vaccine. - Social history:: Smoking status: Reported history of juuling and/or vaping. ROS: 20:00 Constitutional: Negative for fever, chills, and weight loss, Cardiovascular: Negative sp3 for chest pain, palpitations, and edema, Respiratory: Negative for shortness of breath, cough, wheezing, and pleuritic chest pain, Abdomen/GI: Negative for abdominal pain, nausea, vomiting, diarrhea, and constipation, Back: Negative for injury and pain, Skin: Negative for injury, rash, and discoloration, Neuro: Negative for headache, weakness, numbness, tingling, and seizure. 20:00 All other systems are negative. Exam: 20:01 Constitutional: This is a well developed, well nourished patient who is awake, alert, sp3 and in no acute distress. Neuro: Awake and alert, GCS 15, oriented to person, place, time, and situation. Cranial nerves II-XII grossly intact. Motor strength 5/5 in all extremities. Sensory grossly intact. Cerebellar exam normal. Normal gait. Psych: Awake, alert, with orientation to person, place and time. Behavior, mood, and affect are within normal limits. 20:01 Musculoskeletal/extremity: Normal right hip and knee exams. Right ankle demonstrates lateral swelling without pain at the base of the fifth metatarsal, malleoli or pain, or any other abnormality. Patient does have pain on ambulation.. Vital Signs: 19:27 BP 148 / 84; Pulse 94; Resp 16; Temp 98.2(TE); Pulse Ox 98% on R/A; Weight 131.54 kg ll3 (R); Height 5 ft. 8 in. (172.72 cm) (R); Pain 8/10; 19:27 Body Mass Index 44.09 (131.54 kg, 172.72 cm) ll3 MDM: 19:31 Patient medically screened. sp3 20:01 Data reviewed: vital signs, nurses notes, radiologic studies. ED course: Right ankle sp3 x-ray images reviewed by me as well as the radiologist and demonstrate no significant abnormality or fracture. I recommended to patient that he be on crutches along with Jean Carlos wrap and RICE therapy. He declined wanting to use crutches from past experiences. He states that he will hop on it and put partial weight on it as tolerated. I stressed the importance of nonweightbearing at least for the first 48 hours to which she verbalized understanding. Jean Carlos wrap will be applied and patient will be safely discharged with OTC ibuprofen as needed for pain control.. 06/21 19:30 Order name: Ankle Right 3 View XRAY sp3 06/21 19:55 Order name: Jean Carlos Wrap: Right ankle; Complete Time: 20:12 sp3 Administered Medications: No medications were administered Disposition Summary: 06/21/22 20:03 Discharge Ordered Location: Home sp3 Condition: Stable sp3 Diagnosis - Sprain of ankle sp3 Followup: sp3 - With: Dwayne Robert MD - When: Upon discharge from the Emergency Department - Reason: Recheck today's complaints Discharge Instructions: - Discharge Summary Sheet sp3 - Ankle Sprain, [id number] sp3 Forms: - Medication Reconciliation Form sp3 - Thank You Letter sp3 - Antibiotic Education sp3 - Prescription Opioid Use sp3 Signatures: Dispatcher [employer] Brad Bernal MD MD sp3 Frandy Fong RN RN 3
--- NOTE | 2022-06-21 20:30 | RAD REPORT ---
EXAM DESCRIPTION: RAD - Ankle Right 3 View - 06/21/2022 7:50 pm CLINICAL HISTORY: Trauma COMPARISON: None. FINDINGS: Three views of the right ankle. No fracture, dislocation or periosteal reaction. No joint effusion seen. No joint space narrowing. Mi ld soft tissue swelling along the lateral malleolus. IMPRESSION: Lateral malleolar soft tissue swelling, without evidence Loco acute osseus abnormality.
[2022-06-21 20:31] VITALS: BP 148/84; TEMP 98.2; O2SAT 98
== END 2022-06-21 20:15 | disposition home or self-care (01) ==
LOC: ER 19:08
DX: S93.401A Sprain of unspecified ligament of right ankle, initial encounter (principal)
CPT/HCPCS: 99283

== ENCOUNTER 2024-05-03 18:25 | Emergency (ER) | payer OTHER ==
[2024-05-03] MEDS ORDERED: FAMOTIDINE 20 MG/2 ML VIAL IV ONE (19:32)
[2024-05-03] MEDS ORDERED: KETOROLAC 30 MG/ML INJ ONE (19:32)
[2024-05-03] MEDS ORDERED: ONDANSETRON 4 MG/2 ML VIAL ONE (19:32)
[2024-05-03] MEDS ORDERED: NA CHLORIDE 0.9% 1,000 ML ONE (19:32)
[2024-05-03 19:38] LABS: Absolute Basophils 0.1 K/uL (0-0.5); Absolute Eosinophils 0.3 K/uL (0-0.5); Absolute Lymphocytes (CBC) 2.2 K/uL (0.7-4.9); Absolute Monocytes 0.7 K/uL (0.1-1.3); Absolute Neutrophil 8.2 K/uL (1.8-8.0); Basophils % 0.5 % (0-1.3); Eosinophils % 2.5 % (0-4.4); Hematocrit 47.8 % (39.6-49.0); Hemoglobin 16.4 g/dL (13.6-17.9); Lymphocytes % 19.2 % (15.3-44.8); MCH 32.4 pg (27.0-35.0); MCHC 34.4 g/dL (32.0-36.0); MCV 94.3 fL (80-100); MPV 7.6 fL (7.6-11.3); Monocytes % 6.3 % (3.3-12.3); Neutrophils % 71.5 % (41.7-73.7); Nucleated Red Blood Cells % 0.2 % (0-0); Platelets 294 thou/uL (152-406); RBC Red Blood Cell Count 5.07 M/uL (4.33-5.43); Red Cell Distribution Width 13.6 % (12.1-15.2)
--- NOTE | 2024-05-03 19:47 | RAD REPORT ---
EXAM: Right upper quadrant ultrasound. CLINICAL HISTORY: ABD PAIN COMPARISON: None. FINDINGS: Gallbladder: Normal. Bile ducts: No intrahepatic or extrahepatic biliary dilatation. Common bile duct measures 4 mm. Limited imaging of the liver shows no concerning finding. IMPRESSION: Unremarkable exam.
[2024-05-03 20:08] LABS: Albumin 3.6 g/dL (3.4-5.0); Albumin/Globulin Ratio 0.9 (1.1-1.8); Anion Gap 9.6 mEq/L (5.0-15.0); Bilirubin Total 0.4 mg/dL (0.2-1.0); Globulin 3.8 g/dL (2.3-3.5); Potassium 3.6 mEq/L (3.5-5.1); Protein, Total 7.4 g/dL (6.4-8.2)
--- NOTE | 2024-05-03 20:28 | EDPHYS ---
Physician Documentation [facility] Name: Rickey Ingram Age: 33 yrs Sex: Male : 1990 Arrival Date: 05/03/2024 Time: 18:25 Bed 16 Private MD: ED Physician Brad Sullivan HPI: 05/03 19:08 This 33 yrs old Male presents to ER via Ambulatory with complaints of kb Abdominal Pain. 19:08 Patient is a 33-year-old male who presents for epigastric pain that radiates to right kb upper quadrant that started at 830 this morning and got worse around 945 this morning. Reports pain has been constant. Reports nausea. Denies vomiting, diarrhea, fever. No aggravating or alleviating factors.. Historical: - Allergies: 19:07 No Known Allergies; tm6 - PMHx: 19:07 CVA; tm6 - PSHx: 19:07 Left ACL; right knee; Testicular torsion; tm6 - Immunization history:: Flu vaccine is up to date. - Infectious Disease History:: Denies. - Social history:: Smoking status: Reported history of juuling and/or vaping. ROS: 19:07 Constitutional: As per HPI kb Exam: 19:07 Constitutional: This is a well developed, well nourished patient who is awake, alert, kb and in no acute distress. Head/Face: Normocephalic, atraumatic. ENT: Moist Mucous membranes Cardiovascular: Regular rate Respiratory: Respirations even and unlabored. No increased work of breathing. Talking in full sentences Skin: Warm, dry with normal turgor. Normal color. MS/ Extremity: Pulses equal, no cyanosis. Neurovascular intact. Full, normal range of motion. Neuro: Awake and alert, GCS 15, oriented to person, place, time, and situation. 19:07 Abdomen/GI: Inspection: abdomen appears normal, Bowel sounds: normal, Palpation: soft, in all quadrants, mild abdominal tenderness, in the epigastric area and right upper quadrant, Vital Signs: 19:07 Pulse 82; Resp 17; Temp 97.3(TE); Pulse Ox 99% on R/A; Weight 129.27 kg; Height 5 ft. 8 tm6 in. ; Pain 8/10; 19:08 BP 156 / 95; MAP 113 mmHg; tm6 19:09 Pain 8/10; tm6 20:00 BP 121 / 62; Pulse 72; Resp 16; Temp 98.2; Pulse Ox 97% ; me1 19:07 Body Mass Index 43.33 (129.27 kg, 172.72 cm) tm6 19:07 Pain Scale: Adult tm6 19:09 Pain Scale: Adult tm6 MDM: 18:31 Medical Screening Exam initiated kb 20:25 Differential diagnosis: cholecystitis, Cholelithiasis, gastritis, gastroesophageal kb reflux disease, non-specific abd pain, pancreatitis. Data reviewed: vital signs, nurses notes. Test considered but Not performed: CT: ct abd considered but pt is nontoxic in appearance, afebrile, pain localized to RUQ. Discussed with pt, in agreement to return for worsening symptoms. Counseling: I had a detailed discussion with the patient and/or guardian regarding the historical points, exam findings, and any diagnostic results supporting the discharge/admit diagnosis, lab results, radiology results, the need for outpatient follow up, a family practitioner, to return to the emergency department if symptoms worsen or persist or if there are any questions or concerns that arise at home. 05/03 19:07 Order name: CBC with Diff; Complete Time: 19:40 kb 05/03 19:07 Order name: CMP; Complete Time: 20:13 kb 05/03 19:07 Order name: Lipase; Complete Time: 20:13 kb 05/03 19:07 Order name: Abdomen Limited US; Complete Time: 19:49 kb 05/03 19:07 Order name: IV Saline Lock; Complete Time: 19:29 kb 05/03 19:07 Order name: Labs collected and sent; Complete Time: 19:29 kb Administered Medications: 19:39 Drug: Famotidine IVP 20 mg IVP once; dilute with 10 mL 0.9% NaCl; give over 2 minutes me1 Route: IVP; Site: left antecubital; 20:24 Follow up: Response: No adverse reaction me1 19:39 Drug: TORadol - Ketorolac IVP 15 mg IVP once Route: IVP; Site: left antecubital; me1 20:24 Follow up: Response: No adverse reaction; Pain is decreased me1 19:39 Drug: Ondansetron IVP 4 mg IVP once; over 2 minutes Route: IVP; Site: left antecubital; me1 20:24 Follow up: Response: No adverse reaction; Nausea is decreased me1 19:39 Drug: NS 0.9% IV 1000 ml IV at 1 bolus Per protocol; to be given as a bolus over 60 me1 minutes Route: IV; Rate: 1 bolus; Site: left antecubital; 20:24 Follow up: Response: No adverse reaction; IV Status: Completed infusion; IV Intake: me1 1000ml Disposition Summary: 05/03/24 20:27 Discharge Ordered Notes: Location: Home kb Condition: Stable kb Diagnosis - Upper abdominal pain, unspecified kb Followup: kb - With: Emergency Department - When: As needed - Reason: Worsening of condition Followup: kb - With: Private Physician - When: 2 - 3 days - Reason: Recheck today's complaints, Continuance of care, Re-evaluation by your physician Discharge Instructions: - Discharge Summary Sheet kb - Abdominal Pain, Adult, [id number] kb Forms: - Medication Reconciliation Form kb - Antibiotic Education kb - Prescription Opioid Use kb - Patient Portal Instructions kb - Leadership Thank You Letter kb Prescriptions: - Protonix 40 mg Oral Tablet - take 1 tablet ORAL route once daily; 30 tablet; Refills: 0, Product Selection kb Permitted - Zofran 4 mg Oral tablet - take 1 tablet ORAL route every 6 hours As needed; 12 tablet; Refills: 0, kb Product Selection Permitted - dicyclomine 20 mg Oral tablet - take 1 tablet ORAL route 4 times per day As needed; 20 tablet; Refills: 0, kb Product Selection Permitted Signatures: Dispatcher [employer] Nayeli Monroe, LABOR ECONOMIST-C LABOR ECONOMIST-Mirela Hoover, RN RN me1 Gabriel Salamanca RN RN tm6
--- NOTE | 2024-05-03 20:28 | ER ---
Nurse's Notes [facility] Name: Rickey Ingram Age: 33 yrs Sex: Male : 1990 Arrival Date: 05/03/2024 Time: 18:25 Bed 16 Private MD: Diagnosis: Upper abdominal pain, unspecified Presentation: 05/03 19:05 Chief complaint: Patient states: about 0830 today epigastric pain that radiates to tm6 right mid back. Nausea. 19:06 Coronavirus screen: Client denies travel out of the [place] in the last 14 days. Ebola tm6 Screen: Patient negative for fever greater than or equal to 101.5 degrees Fahrenheit, and additional compatible Ebola Virus Disease symptoms Patient denies exposure to infectious person. Patient denies travel to an Ebola-affected area in the 21 days before illness onset. No symptoms or risks identified at this time. Initial Sepsis Screen: Does the patient meet any 2 criteria? No. Patient's initial sepsis screen is negative. Does the patient have a suspected source of infection? No. Patient's initial sepsis screen is negative. Risk Assessment: Do you want to hurt yourself or someone else? Patient reports no desire to harm self or others. Onset of symptoms was May 03, 2024 at 08:30. 19:06 Method Of Arrival: Ambulatory tm6 19:06 Acuity: MARY 3 tm6 Triage Assessment: 19:08 General: Appears uncomfortable, Behavior is calm, cooperative. Pain: Complains of pain tm6 in right upper quadrant and epigastric area Pain currently is 8 out of 10 on a pain scale. EENT: No signs and/or symptoms were reported regarding the EENT system. Neuro: Level of Consciousness is awake, alert, obeys commands, Oriented to person, place, time, situation. Cardiovascular: Patient's skin is warm and dry. Respiratory: Airway is patent Respiratory effort is even, unlabored, Respiratory pattern is regular, symmetrical. GI: Abdomen is round non-distended, Reports epigastric pain, nausea. : No signs and/or symptoms were reported regarding the genitourinary system. Derm: No signs and/or symptoms reported regarding the dermatologic system. Musculoskeletal: No signs and/or symptoms reported regarding the musculoskeletal system. Historical: - Allergies: 19:07 No Known Allergies; tm6 - PMHx: 19:07 CVA; tm6 - PSHx: 19:07 Left ACL; right knee; Testicular torsion; tm6 - Immunization history:: Flu vaccine is up to date. - Infectious Disease History:: Denies. - Social history:: Smoking status: Reported history of juuling and/or vaping. Screenin:[facility] ED Fall Risk Assessment (Adult) History of falling in the last 3 months, me1 including since admission No falls in past 3 months (0 pts) Confusion or Disorientation No (0 pts) Intoxicated or Sedated No (0 pts) Impaired Gait No (0 pts) Mobility Assist Device Used No (0 pt) Altered Elimination No (0 pt) Score/Fall Risk Level 0 - 2 = Low Risk Maintained a safe environment, Provided non-skid footwear, Hourly rounding (assess needs \T\ fall precautionary measures) done. Abuse screen: Denies threats or abuse. Nutritional screening: No deficits noted. Tuberculosis screening: No symptoms or risk factors identified. Assessment: 19:41 General: Appears in no apparent distress. uncomfortable, well groomed, well developed, me1 well nourished, Behavior is calm, cooperative, appropriate for age, Reports epigastric pain that radiates to right upper back starting this morning. Pain: Complains of pain in right upper quadrant and epigastric area Pain radiates to right subscapular area Pain currently is 8 out of 10 on a pain scale. Quality of pain is described as sharp, shooting, Pain began suddenly, Is continuous. Neuro: Level of Consciousness is awake, alert, obeys commands, Oriented to person, place, time, situation, Appropriate for age. Cardiovascular: Patient's skin is warm and dry. Respiratory: Airway is patent Respiratory effort is even, unlabored, Respiratory pattern is regular, symmetrical. GI: Abdomen is round non-distended, Bowel sounds present X 4 quads. Abd is soft X 4 quads Reports upper abdominal pain, nausea. : No signs and/or symptoms were reported regarding the genitourinary system. EENT: No signs and/or symptoms were reported regarding the EENT system. Derm: Skin is intact, is healthy with good turgor, Skin is pink, warm \T\ dry. Musculoskeletal: No signs and/or symptoms reported regarding the musculoskeletal system. Vital Signs: 19:07 Pulse 82; Resp 17; Temp 97.3(TE); Pulse Ox 99% on R/A; Weight 129.27 kg; Height 5 ft. 8 tm6 in. ; Pain 8/10; 19:08 BP 156 / 95; MAP 113 mmHg; tm6 19:09 Pain 8/10; tm6 20:00 BP 121 / 62; Pulse 72; Resp 16; Temp 98.2; Pulse Ox 97% ; me1 19:07 Body Mass Index 43.33 (129.27 kg, 172.72 cm) tm6 19:07 Pain Scale: Adult tm6 19:09 Pain Scale: Adult tm6 ED Course: 18:26 Patient arrived in ED. mr 18:31 Nayeli López FNP-C is PHCP. kb 18:31 Brad Sullivan MD is Attending Physician. kb 19:07 Triage completed. tm6 19:08 Arm band placed on right wrist. tm6 19:21 Mirela Tolbert, VALERIE is Primary Nurse. me1 19:29 CBC with Diff Sent. me1 19:29 CMP Sent. me1 19:29 Lipase Sent. me1 19:29 Initial lab(s) drawn, by vt, sent to lab. Inserted saline lock: 20 gauge in left me1 antecubital area, using aseptic technique. 19:37 Abdomen Limited US In Process Unspecified. EDMS 19:41 Patient has correct armband on for positive identification. Bed in low position. Call vt1 light in reach. Side rails up X 1. Provided Education on: POC. Verbalized understanding.. Client placed on continuous cardiac and pulse oximetry monitoring. NIBP monitoring applied. Pulse ox on. NIBP on. 19:41 No provider procedures requiring assistance completed. me1 20:46 IV discontinued, intact, bleeding controlled, No redness/swelling at site. Pressure me1 dressing applied. Administered Medications: 19:39 Drug: Famotidine IVP 20 mg IVP once; dilute with 10 mL 0.9% NaCl; give over 2 minutes me1 Route: IVP; Site: left antecubital; 20:24 Follow up: Response: No adverse reaction me1 19:39 Drug: TORadol - Ketorolac IVP 15 mg IVP once Route: IVP; Site: left antecubital; me1 20:24 Follow up: Response: No adverse reaction; Pain is decreased me1 19:39 Drug: Ondansetron IVP 4 mg IVP once; over 2 minutes Route: IVP; Site: left antecubital; me1 20:24 Follow up: Response: No adverse reaction; Nausea is decreased me1 19:39 Drug: NS 0.9% IV 1000 ml IV at 1 bolus Per protocol; to be given as a bolus over 60 me1 minutes Route: IV; Rate: 1 bolus; Site: left antecubital; 20:24 Follow up: Response: No adverse reaction; IV Status: Completed infusion; IV Intake: me1 1000ml Medication: 19:41 VIS not applicable for this client. me1 Intake: 20:24 IV: 1000ml; Total: 1000ml. me1 Outcome: 20:27 Discharge ordered by . kb 20:46 Discharged to home ambulatory, me1 20:46 Condition: stable 20:46 Discharge instructions given to patient, Instructed on discharge instructions, follow up and referral plans. medication usage, Demonstrated understanding of instructions, follow-up care, medications, Prescriptions given X 3, 20:46 Patient left the ED. me1 Signatures: Dispatcher [employer] EDMS Nayeli López, BUILD AND RELEASE MANAGER-C BUILD AND RELEASE MANAGER-Ckb Ruth Riley, Reg Reg mr Mirela Tolbert, RN RN me1 Gabriel Salamanca RN RN tm6
[2024-05-03 21:28] VITALS: BP 121/62; TEMP 98.2; O2SAT 97
== END 2024-05-03 20:46 | disposition home or self-care (01) ==
LOC: ER 18:25
DX: R10.13 Epigastric pain (principal)
CPT/HCPCS: 96361; 85025; 36415; 83690; 80053; 76705; 96375; 96374; 99284; J2405; J7030

== ENCOUNTER 2024-06-21 09:37 | Emergency (ER) | payer OTHER ==
[2024-06-21] MEDS ORDERED: METOCLOPRAMIDE 10 MG/2mL INJ ONE (10:02)
[2024-06-21] MEDS ORDERED: MORPHINE 4 MG/ML SYR ONE (10:03)
[2024-06-21] MEDS ORDERED: NA CHLORIDE 0.9% 1,000 ML ONE (10:03)
[2024-06-21 10:59] LABS: Absolute Eosinophils 0.2 K/uL (0-0.5); Absolute Lymphocytes (CBC) 1.3 K/uL (0.7-4.9); Absolute Monocytes 0.8 K/uL (0.1-1.3); Absolute Neutrophil 10.9 K/uL (1.8-8.0); Basophils % 0.2 % (0-1.3); Eosinophils % 1.8 % (0-4.4); Hematocrit 48.3 % (39.6-49.0); Hemoglobin 17.4 g/dL (13.6-17.9); Lymphocytes % 10.1 % (15.3-44.8); MCV 91.7 fL (80-100); MPV 7.9 fL (7.6-11.3); Monocytes % 5.7 % (3.3-12.3); Neutrophils % 82.2 % (41.7-73.7); Nucleated RBC Absolute Count 0.1 (0-0); Nucleated Red Blood Cells % 0.7 % (0-0); Platelets 293 thou/uL (152-406); RBC Red Blood Cell Count 5.27 M/uL (4.33-5.43); Red Cell Distribution Width 12.9 % (12.1-15.2)
--- NOTE | 2024-06-21 11:04 | RAD REPORT ---
EXAM: CT Head Brain Wo Cont HISTORY: headache, numbness COMPARISON: 10/21/2014 TECHNIQUE: Multiple contiguous axial images were obtained for a CT of the brain without contrast. Sag ittal and coronal reformats were performed. One or more of the following dose reduction techniques were used: Automated exposure control, adjus tment of the mA and kV according to patient size, and iterative reconstruction. Unless otherwise specified, incidental findings do not require dedicated imaging follow-up. FINDINGS: No evidence of hydrocephalus, intracranial hemorrhage, or extra-axial fluid collection. The brain is normal in morphology. The calvarium is intact. Polypoidal mucosal thickening throughout the paranasal sinuses. Mastoid air cells are essentially clear. IMPRESSION: No evidence of acute intracranial abnormality. Polypoidal mucosal thickening throughout the paranasal sinuses, with no CT findings to suggest acute sinusitis.
[2024-06-21 11:07] LABS: PT Prothrombin Time 12.1 SECONDS (10.0-13.0); PTT, Activated Partial Thromb 32.6 SECONDS (24.3-36.9); Protime INR 1.06
[2024-06-21 11:11] LABS: Anion Gap 10.9 mEq/L (5.0-15.0); Potassium 3.9 mEq/L (3.5-5.1)
--- NOTE | 2024-06-21 12:10 | RAD REPORT ---
EXAMINATION: MRI BRAIN WITHOUT CONTRAST CLINICAL INDICATION: Male, 33 years old. headache, numbness left side TECHNIQUE: Multiplanar multisequence MR images of the brain were obtained without intravenous contras t. Unless otherwise specified, incidental findings do not require dedicated imaging follow-up. COMPARISON: No prior exam. FINDINGS: INTRACRANIAL: Midline structures are unremarkable. Diffusion-weighted images show no acute or early subacute infarction. No abnormal brain parenchymal signal. The ventricles are normal in size and morphology. No augmented susceptibility signal abnormality. There is no mass effect or midline shift. No abnormal extraaxial fluid collection. VASCULATURE: Normal signal voids in the larger intracranial arteries and dural venous sinuses. SINUSES: Moderate polypoidal paranasal sinus mucosal thickening. Mastoid air cells are predominantly clear. BONE: The marrow signal pattern is within normal limits. IMPRESSION: No significant intracranial abnormalities. Paranasal sinus inflammatory mucosal thickening as above.
[2024-06-21] MEDS ORDERED: KETOROLAC 30 MG/ML INJ ONE (12:22)
--- NOTE | 2024-06-21 12:52 | EDPHYS ---
Physician Documentation [facility] Name: Rickey Ingram Age: 33 yrs Sex: Male : 1990 Arrival Date: 06/21/2024 Time: 09:37 Bed 20 Private MD: ED Physician Pete Garzon HPI: 06/21 10:11 This 33 yrs old Male presents to ER via Unassigned with complaints of rn Headache, Vomiting. 10:11 The patient complains of pain to the top of head and forehead. The patient describes rn the headache as aching. Onset: The symptoms/episode began/occurred yesterday. Severity of symptoms: At its worst the pain was moderate, in the emergency department the pain is unchanged. The symptoms are alleviated by nothing. the symptoms are aggravated by nothing. The patient has experienced a previous episode. The patient has not recently seen a physician. . Historical: - Allergies: 10:38 No Known Allergies; kc6 - PMHx: 10:38 CVA; Hypertensive disorder; kc6 - PSHx: 10:38 Left ACL; right knee; Testicular torsion; kc6 - Immunization history:: Adult Immunizations up to date. - Infectious Disease History:: Denies. - Family history:: not pertinent. - Social history:: Smoking status: Reported history of juuling and/or vaping. - Hospitalizations: : No recent hospitalization is reported. ROS: 10:17 Constitutional: Negative for fever, chills, and weight loss, Eyes: Negative for injury, rn pain, redness, and discharge, Neck: Negative for injury, pain, and swelling, Cardiovascular: Negative for chest pain, palpitations, and edema, Respiratory: Negative for shortness of breath, cough, wheezing, and pleuritic chest pain, Abdomen/GI: Negative for abdominal pain, positive for vomiting MS/Extremity: Negative for injury and deformity, Skin: Negative for injury, rash, and discoloration, Neuro: Positive for headache and numbness to the left side of body Exam: 10:17 Constitutional: This is a well developed, well nourished patient who is awake, alert, rn and in no acute distress. Head/Face: Normocephalic, atraumatic. Eyes: Pupils equal round and reactive to light, extra-ocular motions intact. Lids and lashes normal. Conjunctiva and sclera are non-icteric and not injected. Cornea within normal limits. Periorbital areas with no swelling, redness, or edema. Neck: No meningismus Cardiovascular: Regular rate and rhythm. No pulse deficits. Respiratory: No increased work of breathing, no retractions or nasal flaring. Abdomen/GI: Soft, non-tender MS/ Extremity: Pulses equal, no cyanosis. Neuro: Awake and alert, GCS 15, oriented to person, place, time, and situation. Cranial nerves II-XII grossly intact. Motor strength 5/5 in all extremities. Sensory grossly intact. Cerebellar exam normal. Normal gait. Vital Signs: 10:37 BP 134 / 78; Pulse 78; Resp 16 S; Temp 98.2(O); Pulse Ox 93% on R/A; Weight 131.54 kg kc6 (R); Height 5 ft. 8 in. (R); Pain 9/10; 11:45 Pain 9/10; kc6 12:42 BP 126 / 72; Pulse 70; Resp 17 S; Pulse Ox 96% on R/A; kc6 10:37 Body Mass Index 44.09 (131.54 kg, 172.72 cm) kc6 10:37 Pain Scale: Adult kc6 11:45 Pain Scale: Adult kc6 [place] Coma Score: 12:47 Eye Response: spontaneous(4). Motor Response: obeys commands(6). Verbal Response: rn oriented(5). Total: 15. MDM: 09:41 Medical Screening Exam initiated rn 12:47 Differential diagnosis: cluster headache, cerebral vascular accident, hypertensive rn headache, intracerebral hemorrhage, migraine, neoplasm, sinusitis, tension headache, vasomotor headache. Data reviewed: vital signs, nurses notes, lab test result(s), radiologic studies, CT scan, MRI, and as a result, I will discharge patient. Counseling: I had a detailed discussion with the patient and/or guardian regarding the historical points, exam findings, and any diagnostic results supporting the discharge/admit diagnosis, lab results, radiology results, the need for outpatient follow up, to return to the emergency department if symptoms worsen or persist or if there are any questions or concerns that arise at home. Response to treatment: the patient's symptoms have mildly improved after treatment, and as a result, I will discharge patient. Special discussion: I discussed with the patient/guardian in detail that at this point there is no indication for admission to the hospital. It is understood, however, that if the symptoms persist or worsen the patient needs to return immediately for re-evaluation. Based on the history and exam findings, there is no indication for further emergent testing or inpatient evaluation. I discussed with the patient/guardian the need to see the neurologist for further evaluation of the symptoms. I discussed with the patient/guardian the need to see the primary care provider for further evaluation of the symptoms. ED course: No acute findings in CT head or MRI brain. Specifically CVA ruled out. Patient states this has happened once in the past, questionable CVA but given both episodes with headache and neurological findings could be complicated migraines. Recommend neurology follow-up. Will discharge home with return precautions.. 06/21 09:51 Order name: CBC with Diff; Complete Time: 11:39 06/21 09:51 Order name: Basic Metabolic Panel; Complete Time: 11:39 06/21 09:51 Order name: Protime (+inr); Complete Time: 11:39 06/21 09:51 Order name: Ptt, Activated; Complete Time: 11:39 06/21 09:51 Order name: CT Head Brain wo Cont; Complete Time: 11:39 06/21 09:51 Order name: Brain Wo Cont MRI; Complete Time: 12:11 06/21 09:51 Order name: IV Start; Complete Time: 10:50 rn Administered Medications: 10:50 Drug: NS 0.9% IV 1000 ml IV at 1000 ml once; to be given as a bolus over 60 minutes kc6 Route: IV; Rate: 1000 ml; Site: left forearm; 11:46 Follow up: Response: No adverse reaction; IV Status: Completed infusion; IV Intake: kc6 1000ml 10:50 Drug: metoCLOPramide IVP 10 mg IVP once; over 1 to 2 minutes Route: IVP; Site: left kc6 forearm; 11:46 Follow up: Response: No adverse reaction; Nausea is decreased kc6 10:50 Drug: morphine IVP or IV 4 mg IVP once over 4 mins Route: IVP; Infused Over: 4 mins; kc6 Site: left forearm; 11:46 Follow up: Response: No adverse reaction; Pain is unchanged, physician notified; RASS: kc6 Alert and Calm (0) 12:31 Drug: Ketorolac IVP 30 mg IVP once Route: IVP; Site: left antecubital; kc6 12:59 Follow up: Response: No adverse reaction; Pain is decreased kc6 Disposition Summary: 06/21/24 12:51 Discharge Ordered Notes: Location: Home rn Problem: new rn Symptoms: have improved rn Condition: Stable rn Diagnosis - Headache rn - Paresthesia of skin rn - Acute sinusitis, unspecified rn Followup: rn - With: Private Physician - When: As needed - Reason: Recheck today's complaints, Re-evaluation by your physician Discharge Instructions: - Discharge Summary Sheet rn - Migraine Headache rn - Paresthesia rn - Sinusitis, Adult rn Forms: - Medication Reconciliation Form rn - 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 - Prescription Opioid Use rn - Patient Portal Instructions rn - Leadership Thank You Letter rn Prescriptions: - Augmentin 875-125 mg Oral Tablet - take 1 tablet ORAL route every 12 hours for 10 days; 20 tablet; Refills: 0, rn Product Selection Permitted - Tramadol 50 mg Oral Tablet - take 1 tablet ORAL route every 8 hours as needed; 12 tablet; Refills: 0, rn Product Selection Permitted - Medrol (Ricardo) 4 mg Oral Tablets, Dose Pack - take 1 tablet ORAL route as directed - follow package instructions; 1 packet; rn Refills: 0, Product Selection Permitted Signatures: Dispatcher [employer] Pete Osborne MD MD rn Campbell, Kaitlyn, RN RN kc6 Corrections: (The following items were deleted from the chart) 09:52 09:52 CBC+H.LAB.BRZ ordered. EDMS EDMS 09:52 09:52 BASIC METABOLIC PANEL+C.LAB.BRZ ordered. EDMS EDMS 09:52 09:52 PROTIME (+INR)+COAG.LAB.BRZ ordered. EDMS EDMS 09:52 09:52 PTT, ACTIVATED+COAG.LAB.BRZ ordered. EDMS EDMS
--- NOTE | 2024-06-21 12:52 | ER ---
Nurse's Notes [facility] Name: Rickey Ingram Age: 33 yrs Sex: Male : 1990 Arrival Date: 06/21/2024 Time: 09:37 Bed 20 Private MD: Diagnosis: Headache;Paresthesia of skin;Acute sinusitis, unspecified Presentation: 06/21 10:37 Chief complaint: Patient states: headache x2 days with nausea that started at 1900 kc6 yesterday and vomiting that began at midnight today. pt also reports tingling to the left arm and hand. Coronavirus screen: At this time, the client does not indicate any symptoms associated with coronavirus-19. Ebola Screen: No symptoms or risks identified at this time. Initial Sepsis Screen: Does the patient meet any 2 criteria? No. Patient's initial sepsis screen is negative. Does the patient have a suspected source of infection? No. Patient's initial sepsis screen is negative. Risk Assessment: Do you want to hurt yourself or someone else? Patient reports no desire to harm self or others. Onset of symptoms was June 21, 2024. 10:37 Method Of Arrival: Ambulatory [facility] 10:37 Acuity: MARY 3 kc Triage Assessment: 10:38 Headache History: Denies prior headaches. [facility] Historical: - Allergies: 10:38 No Known Allergies; kc6 - PMHx: 10:38 CVA; Hypertensive disorder; kc6 - PSHx: 10:38 Left ACL; right knee; Testicular torsion; kc6 - Immunization history:: Adult Immunizations up to date. - Infectious Disease History:: Denies. - Family history:: not pertinent. - Social history:: Smoking status: Reported history of juuling and/or vaping. - Hospitalizations: : No recent hospitalization is reported. Screenin:39 [facility] ED Fall Risk Assessment (Adult) History of falling in the last 3 months, kc including since admission No falls in past 3 months (0 pts) Confusion or Disorientation No (0 pts) Intoxicated or Sedated No (0 pts) Impaired Gait No (0 pts) Mobility Assist Device Used No (0 pt) Altered Elimination No (0 pt) Score/Fall Risk Level 0 - 2 = Low Risk Oriented to surroundings, Maintained a safe environment, Educated pt \T\ family on fall prevention, incl call for assistance when getting out of bed. Abuse screen: Denies threats or abuse. Denies injuries from another. Nutritional screening: No deficits noted. Tuberculosis screening: No symptoms or risk factors identified. Assessment: 10:40 General: Appears in no apparent distress. uncomfortable, obese, well groomed, well kc6 developed, Behavior is calm, cooperative, appropriate for age. Pain: Complains of pain in forehead and top of head Pain does not radiate. Pain currently is 9 out of 10 on a pain scale. Quality of pain is described as throbbing, Pain began 2-3 days ago. Is continuous. Neuro: Level of Consciousness is awake, alert, obeys commands, Oriented to person, place, time, situation, Appropriate for age Filter Tip Inspector are equal bilaterally Moves all extremities. Full function Gait is steady, Speech is normal, Facial symmetry appears normal, Pupils are PERRLA, Tingling in left hand and left arm Babinski is positive Reports headache frontal area, paresthesias in left hand and left arm. Cardiovascular: Capillary refill < 3 seconds. Respiratory: Airway is patent Trachea midline Respiratory effort is even, unlabored, Respiratory pattern is regular, symmetrical. GI: No signs and/or symptoms were reported involving the gastrointestinal system. : No signs and/or symptoms were reported regarding the genitourinary system. EENT: No signs and/or symptoms were reported regarding the EENT system. Derm: No signs and/or symptoms reported regarding the dermatologic system. Skin is intact, is healthy with good turgor, Skin is pink, warm \T\ dry. Musculoskeletal: No signs and/or symptoms reported regarding the musculoskeletal system. Circulation, motion, and sensation intact. Range of motion: intact in all extremities. 11:45 Reassessment: Patient appears in no apparent distress at this time. No changes from kc6 previously documented assessment. Patient and/or family updated on plan of care and expected duration. Pain level reassessed. Patient is alert, oriented x 3, equal unlabored respirations, skin warm/dry/pink. Patient states symptoms have not improved. 12:42 Reassessment: Patient appears in no apparent distress at this time. No changes from kc6 previously documented assessment. Patient and/or family updated on plan of care and expected duration. Pain level reassessed. Patient is alert, oriented x 3, equal unlabored respirations, skin warm/dry/pink. Vital Signs: 10:37 BP 134 / 78; Pulse 78; Resp 16 S; Temp 98.2(O); Pulse Ox 93% on R/A; Weight 131.54 kg kc6 (R); Height 5 ft. 8 in. (R); Pain 9/10; 11:45 Pain 9/10; kc6 12:42 BP 126 / 72; Pulse 70; Resp 17 S; Pulse Ox 96% on R/A; kc6 10:37 Body Mass Index 44.09 (131.54 kg, 172.72 cm) kc6 10:37 Pain Scale: Adult kc6 11:45 Pain Scale: Adult kc6 [place] Coma Score: 12:47 Eye Response: spontaneous(4). Motor Response: obeys commands(6). Verbal Response: rn oriented(5). Total: 15. ED Course: 09:41 Patient arrived in ED. cj3 09:41 Pete Garzon MD is Attending Physician. rn 09:57 Miguelina Joseph RN is Primary Nurse. kc6 10:06 CT Head Brain wo Cont In Process Unspecified. EDMS 10:38 Triage completed. kc6 10:38 Arm band placed on. kc6 10:39 Patient has correct armband on for positive identification. Bed in low position. Call kc6 light in reach. Side rails up X 1. Pulse ox on. NIBP on. Door closed. Noise minimized. Lights dimmed. Pillow given. Verbal reassurance given. 10:50 Inserted saline lock: 20 gauge in left forearm, using aseptic technique. Blood kc6 collected. Flushed with 10 mL NS. Patient maintains SpO2 saturation greater than 95% on room air. 11:10 Brain Wo Cont MRI In Process Unspecified. EDMS 12:59 No provider procedures requiring assistance completed. IV discontinued, intact, kc6 bleeding controlled, No redness/swelling at site. Pressure dressing applied. Administered Medications: 10:50 Drug: NS 0.9% IV 1000 ml IV at 1000 ml once; to be given as a bolus over 60 minutes kc6 Route: IV; Rate: 1000 ml; Site: left forearm; 11:46 Follow up: Response: No adverse reaction; IV Status: Completed infusion; IV Intake: kc6 1000ml 10:50 Drug: metoCLOPramide IVP 10 mg IVP once; over 1 to 2 minutes Route: IVP; Site: left kc6 forearm; 11:46 Follow up: Response: No adverse reaction; Nausea is decreased kc6 10:50 Drug: morphine IVP or IV 4 mg IVP once over 4 mins Route: IVP; Infused Over: 4 mins; kc6 Site: left forearm; 11:46 Follow up: Response: No adverse reaction; Pain is unchanged, physician notified; RASS: kc6 Alert and Calm (0) 12:31 Drug: Ketorolac IVP 30 mg IVP once Route: IVP; Site: left antecubital; kc6 12:59 Follow up: Response: No adverse reaction; Pain is decreased kc6 Medication: 13:00 VIS not applicable for this client. kc6 Intake: 11:46 IV: 1000ml; Total: 1000ml. kc6 Outcome: 12:51 Discharge ordered by . rn 12:59 Discharged to home ambulatory, kc6 12:59 Condition: improved 12:59 Discharge instructions given to patient, Instructed on discharge instructions, follow up and referral plans. no drinking with medication, no driving heavy equipment, medication usage, Demonstrated understanding of instructions, follow-up care, medications, Prescriptions given X 3, 13:00 Patient left the ED. kc6 Signatures: Dispatcher [employer] EDMS Pete Garzon MD MD rn Campbell, Kaitlyn, RN RN [facility] Luzma Padilla [email or web address] Corrections: (The following items were deleted from the chart) 10:41 10:37 Chief complaint: Patient states: headache x2 days with nausea that started at kc6 1900 yesterday and vomiting that began at midnight today. kc6 11:45 11:45 Reassessment: Patient appears in no apparent distress at this time. No changes kc6 from previously documented assessment. Patient and/or family updated on plan of care and expected duration. Pain level reassessed. Patient is alert, oriented x 3, equal unlabored respirations, skin warm/dry/pink. kc6
[2024-06-21 13:04] VITALS: TEMP 98.2
[2024-06-21 13:07] VITALS: BP 126/72; O2SAT 96
== END 2024-06-21 13:00 | disposition home or self-care (01) ==
LOC: ER 09:37
DX: J01.90 Acute sinusitis, unspecified (principal); R20.2 Paresthesia of skin; I10 Essential (primary) hypertension
CPT/HCPCS: 85025; 80048; 36415; 85610; 85730; 70450; 70551; J2765; J7030; 99284